=== PATIENT | female | born 1955 | race Hispanic/Latino ===

== ENCOUNTER → 2021-03-06 | Outpatient (CLI) | payer OTHER ==
[~2021-03-06] MED LIST: IOHEXOL 350 MG/ML 100ML INFUS..BTL IV ONE
== END | disposition home or self-care (01) ==
LOC: RAH 07:50
PROVIDERS: ATTEND Internal Medicine Gastroenterology
DX: R93.3 Abnormal findings on diagnostic imaging of other parts of digestive tract (principal); K74.60 Unspecified cirrhosis of liver; R18.8 Other ascites; R16.1 Splenomegaly, not elsewhere classified
CPT/HCPCS: 74170; Q9967

== ENCOUNTER 2021-08-12 02:55 | Emergency (ER) | payer OTHER ==
[~2021-08-12] VITALS: Ht 152.4 cm; Wt 70.3 kg
[2021-08-12] MEDS ORDERED: DIPHENHYDRAMINE HCL 25 MG CAPSULE PO ONE (03:45)
[2021-08-12] MEDS ORDERED: DIPH25 PO (03:50)
[2021-08-12 04:05] VITALS: BP 126/67
== END 2021-08-12 04:08 | disposition home or self-care (01) ==
LOC: EDH 02:55
DX: L25.9 Unspecified contact dermatitis, unspecified cause (principal); I10 Essential (primary) hypertension; Z85.3 Personal history of malignant neoplasm of breast; Z88.1 Allergy status to other antibiotic agents; Z90.11 Acquired absence of right breast and nipple
CPT/HCPCS: 99282; Q0163

== ENCOUNTER 2023-05-25 11:51 | Inpatient (IN) | payer OTHER ==
[~2023-05-25] VITALS: Ht 157.5 cm; Wt 69.8 kg
[~2023-05-25 11:51] MED LIST changes: +DIPH-1242 PO; -IOHEXOL 350 MG/ML 100ML INFUS..BTL IV ONE
[2023-05-25] MEDS ORDERED: INSULIN HUMULIN R 100 UNIT/ML 3ML IV ONE (12:00)
[2023-05-25] MEDS ORDERED: 0.9%NACL 1000ML 2,000 ML IV ONE (12:00)
[2023-05-25 12:21] LABS: BASOPHILS # (AUTO) 0.02 K/uL (0.00-0.20); BASOPHILS % (AUTO) 0.4 % (0.0-5.0); EOSINOPHILS % (AUTO) 1.9 % (0.0-8.0); HEMATOCRIT 30.2 % (36-48); IMMATURE GRANULOCYTE ABSOLUTE 0.02 K/uL (0-1); LYMPHOCYTES # (AUTO) 1.1 K/uL (1.0-4.8); LYMPHOCYTES % (AUTO) 21.6 % (21.0-51.0); MEAN CORPUSCULAR HEMOGLOBIN 33.2 pg (27.0-33.0); MEAN CORPUSCULAR HGB CONC 34.1 g/dL (32.0-36.0); MEAN CORPUSCULAR VOLUME 97.4 fL (79-99); MONOCYTES # (AUTO) 0.6 K/uL (0.1-1.0); MONOCYTES % (AUTO) 11.1 % (3.0-13.0); NEUTROPHILS # (AUTO) 3.4 K/uL (1.8-7.7); NEUTROPHILS % (AUTO) 64.6 % (40.0-77.0); PLATELET COUNT (AUTO) 59 K/uL (130-400); RED CELL DISTRIBUTION WIDTH 15.4 % (11.0-15.5); WHITE BLOOD COUNT (AUTO) 5.2 K/uL (4.8-10.8)
[2023-05-25 12:41] LABS: ALBUMIN 2.2 g/dL (3.5-5.0); BILIRUBIN,TOTAL 3.5 mg/dL (0.2-1.0); CREATININE 1.3 mg/dL (0.5-1.5); TOTAL PROTEIN, SERUM 7.6 g/dL (6.0-8.3)
[2023-05-25 12:57] LABS: PLATELET MORPHOLOGY COMMENT DECREASED
[2023-05-25 13:56] LABS: APPEARANCE,URINE CLEAR (CLEAR); BILIRUBIN,URINE NEGATIVE (NEGATIVE); COLOR,URINE YELLOW (YELLOW); GLUCOSE, URINE (UA) >=1000 mg/dL (NEGATIVE); KETONES,URINE 5 mg/dL (NEGATIVE); LEUKOCYTE ESTERASE ,URINE 75 Leu/uL (NEGATIVE); NITRATE,URINE NEGATIVE (NEGATIVE); OCCULT BLOOD,URINE SMALL (NEGATIVE); PROTEIN,URINE NEGATIVE (NEGATIVE); UROBILINOGEN,URINE 0.2 mg/dL (0.2-1.0)
[2023-05-25 13:57] LABS: ADD UA MICROSCOPIC YES
[2023-05-25 13:58] LABS: BACTERIA,URINE RARE /HPF (None Seen); MUCUS,URINE RARE LPF (None Seen); SQUAMOUS EPITHELIAL CELL,UR RARE /HPF (0-2)
[2023-05-25] MEDS ORDERED: RIFAXIMIN 200 MG TABLET PO SCH (14:30)
[2023-05-25] MEDS: CEFTRIAXONE 1G VIAL IVPB SCH (14:59)
[2023-05-25] MEDS: RIFAXIMIN 550 MG TABLET PO SCH (14:59)
[2023-05-25] MEDS ORDERED: 0.9%NACL 1000ML 1,000 ML IV SCH (15:00)
[2023-05-25] MEDS: INSULIN HUMULIN R 100 UNIT/ML 3ML SQ SCH ×2 (15:00→20:53)
[2023-05-25 15:02] LABS: HEMOGLOBIN A1C 12.4 % (4.0-6.0)
[2023-05-25] MEDS: BUDESONIDE 0.5 MG/2 ML INH IH SCH ×2 (15:06→19:06)
[2023-05-25 15:07] VITALS: PULSE 77; RESP 18
[2023-05-25 15:44] LABS: CRP QUANTITATIVE 8.3 mg/L (0.00-9.0); INR 1.38 (0.85-1.15); MAGNESIUM 1.6 mg/dL (1.80-2.40); PROTHROMBIN TIME 15.7 SEC (9.6-11.6)
[2023-05-25 15:45] LABS: PARTIAL THROMBOPLASTIN TIME 31.6 SEC (26.3-35.5)
[2023-05-25 15:51] LABS: THYROID STIMULATING HORMONE 3.27 uIU/mL (0.36-3.74)
[2023-05-25] MEDS: MAGNESIUM 2GM PREMIX 50ML 50 ML IV SCH (16:16)
[2023-05-25] MEDS ORDERED: [UNRECOGNIZED DRUG - CODE] (17:57)
[2023-05-25 19:06] VITALS: PULSE 84; RESP 18; O2SAT 96
[2023-05-25 20:00] VITALS: BP 120/62; PULSE 84; RESP 19
[2023-05-25] MEDS: LACTULOSE 20 GM/30 ML UDCUP PO SCH (20:04)
[2023-05-25] MEDS ORDERED: INSULIN GLARGINE 100 UNITS/ML 10 ML VIAL SQ SCH (21:00)
[2023-05-25 23:11] VITALS: BP 121/61; PULSE 89; RESP 18
[2023-05-26] VITALS (7 sets, daily range): BP systolic 119–134; BP diastolic 63–73; PULSE 72–102; RESP 17–20; O2SAT 93–97
[2023-05-26] MEDS: RIFAXIMIN 550 MG TABLET PO SCH ×2 (03:00→14:14)
[2023-05-26] MEDS: INSULIN HUMULIN R 100 UNIT/ML 3ML SQ SCH ×6 (07:30→20:58)
[2023-05-26] MEDS: LACTULOSE 20 GM/30 ML UDCUP PO SCH ×2 (09:00→20:20)
[2023-05-26] MEDS: LINAGLIPTIN 5 MG TABLET PO SCH (09:00)
[2023-05-26] MEDS ORDERED: RIFA550T PO (12:12)
[2023-05-26] MEDS ORDERED: INSLAN SQ (12:12)
[2023-05-26] MEDS ORDERED: LINA5TAB PO (12:12)
[2023-05-26] MEDS ORDERED: ACETAMINOPHEN 325 MG TAB PO STA (12:37)
[2023-05-26] MEDS ORDERED: ACETAMINOPHEN 325 MG TAB PO PRN (13:00)
[2023-05-26 13:09] LABS: BASOPHILS # (AUTO) 0.02 K/uL (0.00-0.20); BASOPHILS % (AUTO) 0.4 % (0.0-5.0); EOSINOPHILS # (AUTO) 0.16 K/uL (0.00-0.70); EOSINOPHILS % (AUTO) 3.4 % (0.0-8.0); HEMATOCRIT 27.3 % (36-48); IMMATURE GRANULOCYTE ABSOLUTE 0.02 K/uL (0-1); LYMPHOCYTES # (AUTO) 1.3 K/uL (1.0-4.8); LYMPHOCYTES % (AUTO) 27.8 % (21.0-51.0); MEAN CORPUSCULAR HEMOGLOBIN 32.6 pg (27.0-33.0); MEAN CORPUSCULAR HGB CONC 33.3 g/dL (32.0-36.0); MEAN CORPUSCULAR VOLUME 97.8 fL (79-99); MONOCYTES # (AUTO) 0.7 K/uL (0.1-1.0); MONOCYTES % (AUTO) 13.9 % (3.0-13.0); NEUTROPHILS # (AUTO) 2.6 K/uL (1.8-7.7); NEUTROPHILS % (AUTO) 54.1 % (40.0-77.0); PLATELET COUNT (AUTO) 51 K/uL (130-400); RED BLOOD CELL COUNT(AUTO) 2.79 MIL/uL (4.00-5.50); RED CELL DISTRIBUTION WIDTH 15.7 % (11.0-15.5); WHITE BLOOD COUNT (AUTO) 4.8 K/uL (4.8-10.8)
[2023-05-26] MEDS: CEFTRIAXONE 1G VIAL IVPB SCH (14:14)
[2023-05-26 16:09] LABS: BILIRUBIN,TOTAL 2.2 mg/dL (0.2-1.0); CREATININE 0.8 mg/dL (0.5-1.5); MAGNESIUM 1.7 mg/dL (1.80-2.40); POTASSIUM 3.8 mmol/L (3.5-5.1)
[2023-05-26 16:10] LABS: ALBUMIN 1.9 g/dL (3.5-5.0); TOTAL PROTEIN, SERUM 6.5 g/dL (6.0-8.3)
[2023-05-26] MEDS ORDERED: INSULIN HUMULIN R 100 UNIT/ML 3ML SQ SCH (17:00)
[2023-05-26] MEDS: BUDESONIDE 0.5 MG/2 ML INH IH SCH (18:47)
[2023-05-26] MEDS ORDERED: INSULIN GLARGINE 100 UNITS/ML 10 ML VIAL SQ SCH (21:00)
[2023-05-27] VITALS: BP 123/74; PULSE 96; RESP 18
[2023-05-27] MEDS: MAGNESIUM 2GM PREMIX 50ML 50 ML IV SCH ×2 (00:58→06:53)
[2023-05-27] MEDS: RIFAXIMIN 550 MG TABLET PO SCH (02:42)
[2023-05-27 04:00] VITALS: BP 103/65; PULSE 85; RESP 18
[2023-05-27] MEDS: INSULIN HUMULIN R 100 UNIT/ML 3ML SQ SCH ×4 (05:39→13:46)
[2023-05-27] MEDS: BUDESONIDE 0.5 MG/2 ML INH IH SCH (06:35)
[2023-05-27 06:36] VITALS: PULSE 85; RESP 18
[2023-05-27 07:33] LABS: BASOPHILS # (AUTO) 0.02 K/uL (0.00-0.20); BASOPHILS % (AUTO) 0.3 % (0.0-5.0); EOSINOPHILS % (AUTO) 3.4 % (0.0-8.0); HEMATOCRIT 29.6 % (36-48); IMMATURE GRANULOCYTE ABSOLUTE 0.01 K/uL (0-1); LYMPHOCYTES # (AUTO) 1.8 K/uL (1.0-4.8); LYMPHOCYTES % (AUTO) 30.6 % (21.0-51.0); MEAN CORPUSCULAR HEMOGLOBIN 32.8 pg (27.0-33.0); MEAN CORPUSCULAR HGB CONC 32.1 g/dL (32.0-36.0); MEAN CORPUSCULAR VOLUME 102.1 fL (79-99); MONOCYTES # (AUTO) 0.7 K/uL (0.1-1.0); MONOCYTES % (AUTO) 11.6 % (3.0-13.0); NEUTROPHILS # (AUTO) 3.2 K/uL (1.8-7.7); NEUTROPHILS % (AUTO) 53.9 % (40.0-77.0); PLATELET COUNT (AUTO) 50 K/uL (130-400)
[2023-05-27 07:47] LABS: POTASSIUM 3.9 mmol/L (3.5-5.1)
[2023-05-27 07:48] LABS: MAGNESIUM 1.7 mg/dL (1.80-2.40)
[2023-05-27 08:00] VITALS: BP 120/59; PULSE 81; RESP 16; O2SAT 97
[2023-05-27] MEDS: LINAGLIPTIN 5 MG TABLET PO SCH (09:27)
[2023-05-27] MEDS: LACTULOSE 20 GM/30 ML UDCUP PO SCH (09:27)
[2023-05-27 12:04] VITALS: BP 121/63; PULSE 87; RESP 16
== END 2023-05-27 14:45 | disposition home or self-care (01) | DRG 638 ==
LOC: EDH 11:51 → EDHIP 13:58 → 3CH 16:50
PROVIDERS: ADMIT Internal Medicine; ATTEND Internal Medicine
DX: E11.65 Type 2 diabetes mellitus with hyperglycemia (principal); D68.9 Coagulation defect, unspecified; E87.20 Acidosis, unspecified; N39.0 Urinary tract infection, site not specified; R18.8 Other ascites; K74.60 Unspecified cirrhosis of liver; I11.0 Hypertensive heart disease with heart failure; I50.9 Heart failure, unspecified; K76.82 Hepatic encephalopathy; E83.42 Hypomagnesemia; D69.59 Other secondary thrombocytopenia; E86.1 Hypovolemia; E86.0 Dehydration; E78.5 Hyperlipidemia, unspecified; Z79.4 Long term (current) use of insulin; Z79.84 Long term (current) use of oral hypoglycemic drugs; Z85.3 Personal history of malignant neoplasm of breast; Z90.13 Acquired absence of bilateral breasts and nipples; Z90.49 Acquired absence of other specified parts of digestive tract; Z92.21 Personal history of antineoplastic chemotherapy
CPT/HCPCS: 36415; 71045; 76700; 80048; 80053; 80061; 81001; 82010; 82140; 82550; 82948; 83036; 83605; 83735; 83874; 84145; 84443; 84484; 85025; 85610; 85651; 85730; 86140; 87088; 93005; 94640; 94664; G0378; J0696; J1815; J3475

== ENCOUNTER 2025-02-02 14:16 | Emergency (ER) | payer OTHER ==
[~2025-02-02] VITALS: Ht 157.5 cm; Wt 45.4 kg
[~2025-02-02 14:16] MED LIST changes: -DIPH-1242 PO; +INSLAN SQ; +LINA5TAB PO; +RIFA550T PO; +[UNRECOGNIZED DRUG - CODE]
[2025-02-02] MEDS: acetaMINOPHEN 500 MG TABLET PO ONE (17:32)
--- NOTE | 2025-02-02 18:20 | HMCIMG ---
LUMBAR SPINE RADIOGRAPHS - 2-3 VIEWS INDICATION: Back pain COMPARISON: None FINDINGS: AP, lateral views. Normal lordotic curvature of the lumbar spine is maintained. Mild lumbar dextroscoliosis. Five nonrib-bearing lumbar vertebral bodies are noted. No acute fracture or subluxation identified. Vertebral body heights are well-maintained. Mild to moderate disc height loss at the L4-L5 level. Multilevel mild anterior endplate osteophytic spurring. Multilevel mild to moderate facet disease is most pronounced along the lower lumbar spine levels. IMPRESSION: No fracture or subluxation identified.
--- NOTE | 2025-02-02 18:21 | HMCIMG ---
PELVIS RADIOGRAPH (1 VIEW) INDICATION: Pain COMPARISON: None FINDINGS: No evidence for acute fracture or dislocation. Sacroiliac joints appear normal. Both hip joints appear normal. IMPRESSION: No radiographic evidence for fracture or dislocation.
[2025-02-02 18:23] VITALS: BP 143/64; PULSE 63; RESP 20; TEMP 97.7; O2SAT 100
--- NOTE | 2025-02-02 18:24 | ERN ---
General Chief Complaint: Back Pain or Injury Stated Complaint: BACK PAIN Time Seen by MD: 14:31 Time Seen by Midlevel: 14:31 History of Present Illness Allergies: Coded Allergies: azithromycin (Unverified Allergy, Unknown, 08/12/21) tramadol (Unverified Allergy, Unknown, 05/25/23) Home Meds Active Scripts Insulin Glargine,Hum.rec.anlog (Lantus) 100 Units/Ml Inj, 30 UNITS SQ DAILY for 60 Days, #2 VIAL Prov:CARLOS URIBE NP 05/26/23 Rifaximin (Xifaxan) 550 Mg Tablet, 550 MG PO Q12H for 30 Days, #30 TAB Prov:CARLOS URIBE NP 05/26/23 Linagliptin (Tradjenta) 5 Mg Tablet, 5 MG PO DAILY for 30 Days, #30 TAB Prov:CARLOS URIBE NP 05/26/23 Reported Medications [Tamo] No Conflict Check 05/25/23 Past Medical History Past Medical History: Diabetes-Type I, Hypertension, Liver Disease, Other Medical History Other: BREAST CANCER, CIRRHOSIS Past Surgical History: Cholecystectomy Surgical History Other: R MASTECTOMY, LIVER TRANSPLANT 2023 ED Course Orders Procedure Category Date Status Time Urinalysis Profile LAB 02/02/25 Logged 15:14 Pelvis 1-2vws RAD 02/02/25 Resulted 17:14 Lumbar Spine 2-3vws RAD 02/02/25 Resulted 17:14 Acetaminophen 500mg PHA 02/02/25 Complete Tab (Tylenol 500mg T 17:30 Current Medications Medications (Trade) Dose Ordered Sig/Mar[place]ruz Route PRN Reason Start Time Stop Time Status Last Admin Dose Admin Acetaminophen (TYLenol 500MG TAB) 500 mg ONCE ONCE PO 02/02/25 17:30 02/02/25 17:31 DC 02/02/25 17:32 Vital Signs Date Time Temp Pulse Resp B/P (MAP) Pulse Ox O2 Delivery O2 Flow Rate FiO2 02/02/25 16:52 97.7 62 20 149/63 100 Room Air* 0 21 02/02/25 14:20 99.9 70 20 181/90 98 0 DX & DISP Disposition: Discharge Departure Impression: Primary Impression: Lumbar strain Condition: Stable Additional Instructions: Your pelvis and lumbar x-ray does not show any evidence of an acute fracture or dislocation. Your pain is musculoskeletal in nature. Please follow up with your primary care doctor in 2-3 days for repeat evaluation. Continue with Tylenol as needed. Referrals: DANIAL PISANO MD (PCP) I have reviewed the case, and I agree with, Diagnosis and Plan I performed the substantive portion of the visit. I have reviewed and personally made and approve the management plan that is documented in the note by myself or the ANTHONY. I acknowledge for responsibility for the patient's management plan. ZANDRA PISANO Feb 02, 2025 18:24
== END 2025-02-02 18:43 | disposition home or self-care (01) ==
LOC: EDH 14:16
DX: S39.012A Strain of muscle, fascia and tendon of lower back, initial encounter (principal); E11.9 Type 2 diabetes mellitus without complications; I10 Essential (primary) hypertension; Z79.4 Long term (current) use of insulin; Z79.84 Long term (current) use of oral hypoglycemic drugs; Z85.3 Personal history of malignant neoplasm of breast; Z88.1 Allergy status to other antibiotic agents; Z88.5 Allergy status to narcotic agent; Z90.49 Acquired absence of other specified parts of digestive tract; Z94.4 Liver transplant status; X58.XXXA Exposure to other specified factors, initial encounter; Y93.89 Activity, other specified; Y92.89 Other specified places as the place of occurrence of the external cause; Y99.8 Other external cause status
CPT/HCPCS: 72100; 72170; 99284